=== PATIENT | male | born 1990 | race Caucasian/White ===

== ENCOUNTER 2025-07-19 07:45 | Emergency (ER) | payer OTHER, SELFPAY ==
--- NOTE | ~2025-07-19 | CT_ITS ---
EXAMINATION: CT cervical spine wo con DATE: 07/19/2025 08:27 INDICATION: Neck pain post injury TECHNIQUE: Computed tomography (CT) of the cervical spine was performed without intravenous contrast. Automated exposure control and iterative reconstruction technique were employed. The dose-length product was 681.00 mGy-cm. COMPARISON: None FINDINGS: Alignment is normal. Vertebral body heights are normal. No fracture. Cervical disc heights are normal. Mild disc height loss at T2-T3 and T3-T4. No central canal stenosis. Minimal to mild multilevel cervical facet and uncovertebral osteoarthritis. No neural foraminal stenosis. Mild paraseptal predominant emphysema at the apices of lungs. Cervical soft tissues are unremarkable. IMPRESSION: 1. Minimal to mild cervical facet and uncovertebral osteoarthritis. No acute osseous abnormality. Reviewed, dictated and finalized at location A. IMPRESSION: 1. Minimal to mild cervical facet and uncovertebral osteoarthritis. No acute os seous abnormality.
--- NOTE | ~2025-07-19 | CT_ITS ---
EXAMINATION: CT thoracic spine wo con COMPARISON: None HISTORY: back pain TECHNIQUE: Axial images were obtained through the spine without IV contrast. Coronal, sagittal reconstruction images were obtained from the axial views. CT scan performed using dose optimization techniques including the following automated exposure control; adjustment of mA and/or kV; use of iterative reconstruction technique. Automatic exposure control was used to reduce radiation dose. Permanent radiation dose record is archived to PACS. FINDINGS: Moderate loss of vertebral height throughout, no fracture or subluxation. Moderate loss of disc height throughout. Soft tissues unremarkable. Impression: No acute abnormality. Reviewed, dictated and finalized at location P. Impression: No acute abnormality.
--- NOTE | ~2025-07-19 | XR_ITS ---
EXAMINATION: XR hip RT min 3V w AP pelvis, 07/19/2025 8:00 CDT HISTORY: right hip pain COMPARISON: No comparisons available. Findings: No acute fracture or malalignment. No significant degenerative changes. Soft tissues unremarkable. Impression: No acute fracture or malalignment. Reviewed, dictated and finalized at location P. Impression: No acute fracture or malalignment.
--- NOTE | ~2025-07-19 | CT_ITS ---
EXAMINATION: CT brain wo con DATE: 07/19/2025 08:27 INDICATION: Head injury TECHNIQUE: Computed tomography (CT) of the head was performed without intravenous contrast. Sagittal and coronal reconstructions were performed. The mA was adjusted according to patient size. Iterative reconstruction technique was employed. The dose-length product was 681.00 mGy-cm. COMPARISON: None FINDINGS: No fracture. No acute intracranial hemorrhage, acute infarction or abnormal extra axial fluid collection. Ventricles are normal and symmetric. No mass/mass effect. The orbits, paranasal sinuses and mastoid air cells are normal. IMPRESSION: 1. Normal head CT. Reviewed, dictated and finalized at location A. IMPRESSION: 1. Normal head CT.
--- NOTE | ~2025-07-19 | XR_ITS ---
EXAMINATION: XR ribs LT 2V, 07/19/2025 8:00 CDT HISTORY: rib pain COMPARISON: No comparisons available. Findings: No acute fracture or malalignment. No significant degenerative changes. Soft tissues unremarkable. Impression: No acute fracture or malalignment. Reviewed, dictated and finalized at location P. Impression: No acute fracture or malalignment.
--- NOTE | ~2025-07-19 | XR_ITS ---
EXAMINATION: XR hand LT min 3V, 07/19/2025 8:00 CDT HISTORY: hand injury COMPARISON: No comparisons available. Findings: No acute fracture or malalignment. No significant degenerative changes. Soft tissues unremarkable. Impression: No acute fracture or malalignment. Reviewed, dictated and finalized at location P. Impression: No acute fracture or malalignment.
[2025-07-19 07:56] VITALS: BP 139/95; PULSE 106; RESP 20; TEMP 36.6; O2SAT 100
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
[2025-07-19] MEDS: TETANUS,DIPHTHERIA,AC PERTUSSIS ADULT 0.5 ML (ADACEL) IM (08:38)
[2025-07-19] MEDS: KETOROLAC (*BKC) 60 MG/2 ML VIAL IM (08:40)
[2025-07-19 09:18] VITALS: BP 132/86; PULSE 84; RESP 20; O2SAT 98
== END 2025-07-19 09:18 | disposition home or self-care (01) ==
LOC: CHSED 09:06
PROVIDERS: Emergency Provider Emergency Medicine; Referring Provider Family Medicine
DX: S61.412A Laceration without foreign body of left hand, initial encounter (principal); S16.1XXA Strain of muscle, fascia and tendon at neck level, initial encounter; S39.012A Strain of muscle, fascia and tendon of lower back, initial encounter; Z23 Encounter for immunization; V47.5XXA Car driver injured in collision with fixed or stationary object in traffic accident, initial encounter
CPT/HCPCS: 12001; 70450; 71100; 72125; 72128; 73130; 73502; 90471; 90715; 96372; 99284; J1885